=== PATIENT | female | born 1985 ===

== ENCOUNTER 2023-01-04 23:09 | Inpatient (IN) ==
[2023-01-04] MEDS ORDERED: OXYTOCIN 30 UNITS/500 ML BAG IV PRN (23:48)
[2023-01-04] MEDS ORDERED: LIDOCAINE 1% LOCAL 20 ML VIAL INFIL PRN (23:48)
--- NOTE | 2023-01-05 00:01 | History & Physical Report ---
Date of Service January 04, 2023 Assessment & Plan (1) Desires (vaginal after ) trial: (2) Post term over 40 weeks: (3) Active labor at term: Plan admit, iv, offered arom, offered epidural. pt undecided. fhts categ 1. Admission and Anticipated Discharge Date Admission Date: January 04, 2023 History of Present Illness Chief Complaint: labor, Primary Care Provider: NO PCP 37yo at 40+wks tristin presents to L&D with active labor, planned . She had ? rom but exam per nursing 7cm with bulging membranes. +bleeding. no ctx. +fm. PNC c/b 1. ama 2. prior c/s, prior successful 3. anemia 4. prior c/b iugr--last efw aga 5. ?vsd on [place] us, echo WNL PNL rh pos, ri, gbs neg. OB[facility]: c/s x 1, x 1 [facility]: nl pap no stds Allergies Allergy/AdvReac Type Severity Reaction Status Date / Time copper Allergy Rash Verified 01/02/23 09:58 latex Allergy Rash Verified 01/02/23 09:58 promethazine AdvReac "unable to Verified 01/02/23 09:37 move my body" "extreme drowsiness" Home Medications Medication Instructions Recorded Confirmed Type prenat.vits,sami,alr-hetv-oclmw 1 tab PO QPM 05/26/22 01/04/23 History hydrocortisone acetate 25 mg 25 mg OR BID 2 weeks #12 ea 06/26/22 01/02/23 Rx rectal suppository (Anusol-HC) nystatin-triamcinolone 100,000 1 applic topical BID #30 grams 10/25/22 01/02/23 Rx unit/g-0.1 % topical cream ondansetron HCl 4 mg tablet 4 mg PO Q6H PRN nausea and 12/14/22 01/04/23 Rx vomiting #30 tabs aspirin 81 mg tablet,delayed 81 mg PO QPM 01/02/23 01/04/23 History release Patient History Medical History (Updated 01/05/23 @ 00:00 by Elena Gomez MD, FACOG) Anxiety History of anesthesia reaction "they had to adjust the dose with my because I could not stop vomiting during the procedure" (surgeon unable to get old records from [place]) History of chicken pox History of depression History of migraine Iron deficiency anemia pt was scheduled to see heme but appt continues to be pushed back; per OB, pt to increase iron intake PONV (postoperative nausea and vomiting) Prior complicated by IUGR, antepartum ASA 81mg daily Surgical History (Updated 01/05/23 @ 00:00 by Elena Gomez MD, FACOG) S/P section S/P eye surgery Family History Grandmother (Paternal) Diabetes Other No family history of adverse response to anesthesia Denies family history of Ovarian cancer Breast cancer Colorectal cancer Social History Smoking Status: Never smoker Second Hand Exposure: No; Do You Dip or Chew Tobacco: No; Hx Alcohol Use: No Hx Substance Use: No Preferred Language: Taiwanese Communication Ability: Effective Marketing Proposal Specialist Required: No Beliefs That Will Affect Care: Synagogue and Cultural Cultural Beliefs: requests female staff only marital status: marital status details: Thaddeus Chavez Chamorro (37) [phone] Current Living Situation: Spouse and Family Current Living Situation Comment: lives with spouse, 2 children, no pets current occupational status: employed current occupation: [employer] Feels Safe at Home: Yes Assistive Devices: Glasses Review of Systems as per Subjective / HPI Physical Exam Constitutional: WD/WN, vitals as above Respiratory: normal respiratory effort, lungs clear to auscultation Cardiovascular: Rate/Rhythm: regular rate and regular rhythm Gastrointestinal (Abdomen): soft gravid nt efw 7-8# Musculoskeletal: no edema Neurologic: grossly normal Psychiatric: A+Ox3, euthymic affect Genitourinary: Manual OB Exam: + cervical dilation 8 cm, + cervical effacement 100%, + station 0 and + amniotic fluid (bulging membranes) OB Exam Monitor Tracing: + external FHT monitor used, + external uterine monitor used, + category I and + normal FHT variability Results & Data Vital Signs (Past 12 Hours) Vital Signs Pulse BP 01/04/23 23:43 81 110/62 Code Status & VTE Plan VTE Prophylaxis Plan VTE Prophylaxis will be ordered: No Reason for no VTE drug order: Treatment not indicated Coding Level of Care Code None Diagnoses Desires (vaginal after ) trial O34.219 Post term over 40 weeks O48.0 Active labor at term
--- NOTE | 2023-01-05 00:20 | Labor Progress Brief Note ---
Date of Service January 05, 2023 Subjective pt ready for arom Assessment & Plan (1) Post term over 40 weeks: (2) Active labor at term: (3) Desires (vaginal after ) trial: Plan will likely begin 2nd stage soon. categ 1 fhts Admission and Anticipated Discharge Date Admission Date: January 04, 2023 Physical Exam Genitourinary: Manual OB Exam: + cervical dilation 9 cm, + cervical effacement 100%, + station 0 and + amniotic fluid (arom) clear OB Exam Monitor Tracing: + external FHT monitor used, + external uterine monitor used (q2-3), + category I and + normal FHT variability Results & Data Vital Signs (Past 12 Hours) Vital Signs Temp Pulse Resp BP 01/04/23 23:43 81 110/62 01/04/23 23:36 97.9 F 18 Coding Level of Care Code None Diagnoses Post term over 40 weeks O48.0 Active labor at term Desires (vaginal after ) trial O34.219
[2023-01-05 00:31] LABS: Hematocrit (blood only) 34.2 % (37.0-47.0); Hemoglobin 11.7 g/dl (12.0-16.0); Mean Corpuscular Hemoglobin 29.5 pg (25.0-34.0); Mean Corpuscular Hgb Conc 34.2 g/dL (32.0-36.0); Mean Corpuscular Volume 86.1 fL (80.0-100.0); Mean Platelet Volume 9.5 fL (9.4-12.4); Platelet Count 190 K/uL (130-400); RDW Coefficient of Variation 17.1 % (11.5-14.5); RDW Standard Deviation 52.8 fL (36.4-46.3); Red Blood Count 3.97 M/uL (4.20-5.40); White Blood Count 12.79 K/ul (4.8-10.8)
[2023-01-05] MEDS: LACTATED RINGER'S 1,000 ML IV PRN ×2 (01:36→02:42)
[2023-01-05] MEDS ORDERED: LIDOCAINE 2%/EPINEPHRINE 1:200,000 20 ML PF ONE (01:38)
[2023-01-05] MEDS ORDERED: BUPIVACAINE 0.25% PF 30 ML VIAL ONE (01:38)
[2023-01-05] MEDS ORDERED: fentaNYL 2MCG/ML ROPIVACAINE 1.25MG/ML 100 ML BAG EPI ONE (01:38)
[2023-01-05] MEDS ORDERED: SODIUM CHLORIDE 0.9% PF INJ 10 ML VIAL ONE (01:38)
[2023-01-05] MEDS ORDERED: fentaNYL citrate PF 100 MCG/2 ML VIAL ONE (01:38)
[2023-01-05] MEDS ORDERED: ePHEDrine sulfate 50 MG/ML AMP ONE (01:39)
--- NOTE | 2023-01-05 01:42 | Labor Progress Brief Note ---
Date of Service January 05, 2023 Subjective trying to breathe with ctx, grunting. Assessment & Plan (1) Desires (vaginal after ) trial: (2) Post term over 40 weeks: (3) Active labor at term: Plan suspect due to pain and bearing down, cx swelling. rec epidural anesth and pt agrees. does have rest in between ctx and fhts categ 1. Admission and Anticipated Discharge Date Admission Date: January 04, 2023 Physical Exam Constitutional: WD/WN, vitals as above Genitourinary: OB Exam Abdomen: + vertex (on u/s) Manual OB Exam: + cervical dilation 8 cm, + cervical effacement 90% and + station 0 OB Exam Monitor Tracing: + external FHT monitor used, + external uterine monitor used (q2), + category I and + normal FHT variability uterus relaxes in between ctx, pt has no pain in between ctx Results & Data Vital Signs (Past 12 Hours) Vital Signs Temp Pulse Resp BP 01/04/23 23:43 81 110/62 01/04/23 23:36 97.9 F 18 Coding Level of Care Code None Diagnoses Desires (vaginal after ) trial O34.219 Post term over 40 weeks O48.0 Active labor at term
[2023-01-05] MEDS ORDERED: NALBUPHINE HCL INJ 10 MG/ML AMP IV PRN (02:24)
[2023-01-05] MEDS ORDERED: BUPIVACAINE 0.25% PF 30 ML VIAL EPI STA (02:24)
[2023-01-05] MEDS ORDERED: BUPIVACAINE 0.25% PF 30 ML VIAL EPI PRN (02:24)
[2023-01-05] MEDS ORDERED: LIDOCAINE 2% MPF LOCAL 5 ML VIAL EPI PRN (02:24)
[2023-01-05] MEDS ORDERED: NALOXONE HCL 1 MG in SODIUM CHLORIDE 0.9% 1000ML 1,000 ML IV PRN (02:24)
[2023-01-05] MEDS ORDERED: ONDANSETRON INJ 2 MG/ML 2 ML VIAL IV PRN (02:24)
[2023-01-05] MEDS ORDERED: NALOXONE HCL 0.4 MG/1 ML VIAL/CARP IV PRN (02:24)
[2023-01-05] MEDS ORDERED: fentaNYL citrate PF 100 MCG/2 ML VIAL EPI STA (02:24)
[2023-01-05] MEDS ORDERED: LIDOCAINE 2%/EPINEPHRINE 1:200,000 20 ML PF EPI STA (02:24)
[2023-01-05] MEDS ORDERED: fentaNYL citrate PF 100 MCG/2 ML VIAL EPI PRN (02:24)
[2023-01-05] MEDS ORDERED: SODIUM CHLORIDE 0.9% PF INJ 10 ML VIAL EPI PRN (02:24)
[2023-01-05] MEDS ORDERED: ROPIVACAINE 0.5% PF 5 MG/ML 20 ML VIAL EPI PRN (02:24)
[2023-01-05] MEDS ORDERED: ePHEDrine sulfate 50 MG/ML AMP IV PRN (02:24)
[2023-01-05] MEDS ORDERED: fentaNYL 2MCG/ML ROPIVACAINE 1.25MG/ML 100 ML BAG EPI PRN (02:24)
[2023-01-05] MEDS ORDERED: SODIUM CHLORIDE 0.9% PF INJ 10 ML VIAL EPI STA (02:24)
[2023-01-05] MEDS ORDERED: diphenhydrAMINE 50 MG/ML VIAL IV PRN (02:24)
--- NOTE | 2023-01-05 02:26 | Anesthesiology Consultation ---
Date of Service January 05, 2023 Assessment & Plan Chart Review Chart Review: Patient NOT seen in Pre Admission Testing and Acceptable Risk for Labor Epidural Consults Requested none ASA ASA2 Proposed Anesthesia Anesthesia Type: Labor Epidural and CSE Risk / Benefits Reviewed With: PT / POA / Parent / Guardian, Accepts Plan and Informed Consent Obtained History Height/Weight Height: 5 ft Weight: 73.482 kg Allergies Allergy/AdvReac Type Severity Reaction Status Date / Time copper Allergy Rash Verified 01/02/23 09:58 latex Allergy Rash Verified 01/02/23 09:58 promethazine AdvReac "unable to Verified 01/02/23 09:37 move my body" "extreme drowsiness" Medications Home Medications Medication Instructions Recorded Confirmed Last Taken prenat.vits,sami,viq-ttgx-gnzdd 1 tab PO QPM 05/26/22 01/04/23 01/01/23 hydrocortisone acetate 25 mg 25 mg IA BID 2 weeks #12 ea 06/26/22 01/02/23 Unknown rectal suppository (Anusol-HC) nystatin-triamcinolone 100,000 1 applic topical BID #30 grams 10/25/22 01/02/23 Unknown unit/g-0.1 % topical cream ondansetron HCl 4 mg tablet 4 mg PO Q6H PRN nausea and 12/14/22 01/04/23 01/04/23 vomiting #30 tabs aspirin 81 mg tablet,delayed 81 mg PO QPM 01/02/23 01/04/23 01/03/23 release Active Medications Generic Name Dose Route Start Last Admin Trade Name Freq PRN Reason Stop Dose Admin Lactated Ringer's 1,000 mls @ 125 mls/hr 01/04/23 23:48 01/05/23 01:37 Lr IV 01/06/23 23:47 999 mls/hr .Q8H PRN Infusion L&D Protocol Protocol Past Medical History Medical History (Updated 01/05/23 @ 00:00 by Elena Gomez MD, FACOG) Anxiety History of anesthesia reaction "they had to adjust the dose with my because I could not stop vomiting during the procedure" (surgeon unable to get old records from [place]) History of chicken pox History of depression History of migraine Iron deficiency anemia pt was scheduled to see heme but appt continues to be pushed back; per OB, pt to increase iron intake PONV (postoperative nausea and vomiting) Prior complicated by IUGR, antepartum ASA 81mg daily Exercise / Class Metabolic Activity II 4-5 Yardwork/Stairs/Walk up hill Past Family History Family History Grandmother (Paternal) Diabetes Other No family history of adverse response to anesthesia Denies family history of Ovarian cancer Breast cancer Colorectal cancer Past Surgical History Surgical History (Updated 01/05/23 @ 00:00 by Elena Gomez MD, FACOG) S/P section S/P eye surgery Past Anesthesia History No Hx of Anesthesia Complications and No Family Hx of Anesthesia Complications History of PONV No Hx of PONV and No Hx of Motion Sickness Social History Smoking Status: Never smoker Do You Dip or Chew Tobacco: No Hx Alcohol Use: No Hx Substance Use: No substance use type: does not use Physical Exam Vital Signs Last Vital Signs Temp 36.6 C 01/04/23 23:36 Pulse 106 H 01/05/23 02:24 Resp 18 01/04/23 23:36 BP 100/55 L 01/05/23 02:24 Pulse Ox 99 01/05/23 02:23 ENMT Mouth: no dentition abnormality Thyromental Distance: > or= 3.5 Finger Breadths Mallampati Class: II Neck normal visual inspection Respiratory normal respiratory effort Auscultation: lungs clear to auscultation bilaterally Cardiovascular Rate/Rhythm: regular rate and regular rhythm Psychiatric Orientation: alert Testing Laboratory Results 01/05/23 00:14 Blood Type Cancelled 01/05/23 00:14 Blood Type O Positive 01/05/23 00:14 Antibody Screen Cancelled 01/05/23 00:14 Antibody Screen NEGATIVE 01/05/23 00:14
[2023-01-05] MEDS ORDERED: OXYTOCIN 30 UNITS/500 ML BAG IV SCH (07:00)
--- NOTE | 2023-01-05 07:09 | Delivery Summary ---
Vaginal Delivery Summary Date of Service January 05, 2023 Vaginal Delivery Summary and 2nd Degree LAC The patient dilated to complete and pushed to deliver a viable female Apgars 9 and 9 via over 2nd degree perineal laceration. Mouth and nose bulb suctioned at perineum. Loose nuchal x 1 reduced. Shoulders and body delivered with ease. was vigorous and crying at . Cord clamped at 30 seconds of life and infant to maternal abdomen where the cord was then doubly clamped and cut. Placenta delivered spontaneously and intact, three-vessel cord. Hemostasis achieved with dilute pitocin and uterine massage. Laceration repaired in routine fashion with 3-0 vicryl. Cervix and sulci intact. EBL 300 cc. Mother and baby stable in recovery. [facility] Vaginal Delivery Charge Delivery Type Details: and 2nd Degree LAC
[2023-01-05] MEDS ORDERED: bisacodyL 10 MG SUPP PR PRN (07:16)
[2023-01-05] MEDS ORDERED: DIPHTHERIA/TETANUS/PERTUSSIS 0.5mL SYR/VIAL (Age 7+yrs) IM ONE (07:16)
[2023-01-05] MEDS ORDERED: BENZOCAINE 20% AER SPR 82.5 GM CAN EXT PRN (07:16)
[2023-01-05] MEDS ORDERED: OXYTOCIN 30 UNITS/500 ML BAG IV PRN (07:16)
[2023-01-05] MEDS ORDERED: oxyCODONE/ACETAMINOPHEN 5mg/325mg TAB PO PRN (07:16)
[2023-01-05] MEDS ORDERED: OXYTOCIN 20 UNITS in LACTATED RINGER'S 1,000 ML IV SCH (07:16)
[2023-01-05] MEDS ORDERED: HYDROCORTISONE ACETATE 25 MG SUPP PR PRN (07:16)
[2023-01-05] MEDS: ACETAMINOPHEN 325 MG TAB PO PRN ×2 (08:31→14:41)
[2023-01-05] MEDS: IBUPROFEN 600 MG TAB PO PRN ×3 (08:32→20:04)
--- NOTE | 2023-01-05 09:05 | Anesthesia Procedure Note ---
Date of Service January 05, 2023 Anesthesia Post Epidural Note Vital Signs Vital Signs: Temp Pulse Resp BP Pulse Ox 36.5 C 78 18 108/55 L 99 01/05/23 07:20 01/05/23 08:56 01/05/23 04:00 01/05/23 08:56 01/05/23 07:04 Pain Intensity Abdomen: Pain Intensity: 1 Notes Mental Status: alert / awake / arousable and participated in evaluation Nausea / Vomiting: adequately controlled Pain: adequately controlled Airway Patency, RR, SpO2: stable & adequate BP & HR: stable & adequate Hydration State: stable & adequate Neuraxial Anesthesia: was administered and sensory block is resolving Anesthetic Complications: no major complications apparent and Pt Satisfied with anesthetic care Epidural: Removed without complications and With tip intact
[2023-01-05] MEDS: PRENATAL VITAMIN 1 TAB PO SCH (19:29)
[2023-01-05] MEDS: DOCUSATE SODIUM 100 MG CAP PO SCH ×2 (19:29→20:04)
[2023-01-06] MEDS: IBUPROFEN 600 MG TAB PO PRN ×5 (00:06→21:49)
[2023-01-06] MEDS: ACETAMINOPHEN 325 MG TAB PO PRN (02:39)
[2023-01-06 06:43] LABS: Hematocrit (blood only) 29.2 % (37.0-47.0); Hemoglobin 9.8 g/dl (12.0-16.0)
--- NOTE | 2023-01-06 06:56 | Obstetrical Progress Note ---
Date of Service January 06, 2023 Assessment & Plan (1) Active labor at term: (2) Post term over 40 weeks: (3) Desires (vaginal after ) trial: Plan Dipesh is a 37 y/o female who is PPD #1 following delivery at 40+ weeks. -Meeting all milestones -Vital signs reviewed and WNL, Hemoglobin 9.8 this morning -Follow up in 6 weeks for appointment -Continue routine care -Considering d/c tomorrow Admission and Anticipated Discharge Date Admission Date: January 04, 2023 Supervising Physician Co-Signing Physician Notes Resident Physician Supervision Note: I was present with [Trudi] during the history and exam. I discussed the case with the resident and agree with the findings and plan as documented in the note. Any exceptions or clarifications are listed here: [None] Documented By: Jhonny Quiles MD, FACOG Subjective Dipesh is a 37 y/o female who is PPD #1 following delivery at 40+ weeks. She reports feeling well overall this morning. Notes abdominal cramping- pain worse with ambulation and breast feeding. Voiding without issue. Tolerating meals overnight and able to ambulate some. Currently breast feeding. Does note some lightheadedness when ambulating- had iron infusions in the past. Review of Systems Constitutional: no fever, no chills and no sweats Respiratory: no cough, no dyspnea and no wheezing Cardiovascular: no chest pain, no palpitations and no calf pain Genitourinary: no dysuria Neurologic: no headache(s) Physical Exam Constitutional: WD/WN, vitals as above no acute distress Respiratory: no respiratory distress Auscultation: lungs clear to auscultation bilaterally; no rales, no rhonchi and no wheezes Cardiovascular: RRR, no murmur, no edema Extremities: no calf tenderness and no edema Negative Kumar's sign bilaterally. Gastrointestinal (Abdomen): Inspection/Auscultation: normal bowel sounds Genitourinary: Uterine fundus firm, palpable below the umbilicus. Results & Data Vital Signs (Past 12 Hours) Vital Signs Temp Pulse Resp BP O2 Del Method 01/06/23 02:34 36.5 C 84 16 98/65 L Room Air 01/05/23 22:53 36.7 C 84 16 98/61 L Room Air 01/05/23 19:49 36.6 C 80 18 101/63 Room Air Resident Activity Tracking Resident Involvement: Resident Care Provided Care Provided: OB Delivery
[2023-01-06] MEDS: PRENATAL VITAMIN 1 TAB PO SCH (07:48)
[2023-01-06] MEDS: DOCUSATE SODIUM SYRUP 100 MG/10 ML UDC PO SCH ×2 (08:43→20:23)
[2023-01-07] MEDS: IBUPROFEN 600 MG TAB PO PRN ×2 (04:18→08:34)
--- NOTE | 2023-01-07 07:19 | Obstetrical Progress Note ---
Date of Service January 07, 2023 Assessment & Plan (1) Encounter for care and examination after delivery: satisfactory course plan discharge today follow up in 6 weeks or PRN Subjective Ambulation: ambulating normally Voiding: no voiding problems Passing Gas:: Yes Diet Tolerance:: regular diet Lochia:: Small Feeding Type:: breast feeding Review of Systems All systems reviewed & are unremarkable except as noted in HPI & below Physical Exam Constitutional WD/WN, vitals as above Psychiatric A+Ox3, euthymic affect Genitourinary OB Exam Abdomen: + fundal height Fundus: + firm and + relation to umbilicus (2 below) Results & Data Vital Signs (Past 12 Hours) Vital Signs Temp Pulse Resp BP Pulse Ox O2 Del Method 01/06/23 23:00 98.1 F 69 18 99/64 L 98 Room Air 01/06/23 20:30 97.9 F 75 18 105/68
[2023-01-07] MEDS: PRENATAL VITAMIN 1 TAB PO SCH (08:35)
[2023-01-07] MEDS: DOCUSATE SODIUM SYRUP 100 MG/10 ML UDC PO SCH (08:35)
== END 2023-01-07 14:35 | disposition home or self-care (01) | DRG 807 ==
LOC: OPB 23:09 → 4S1 23:11 → 4E2 01-05 12:04